=== PATIENT | male | born 2000 | race Caucasian/White ===

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

== ENCOUNTER → 2019-03-06 | Outpatient (REF) | payer MEDICAID ==
[~2019-03-06] MED LIST: CHLO0.12; CLIN150C14; HYDR-3716; IBUP80TA
== END ==
LOC: M LAB REF 13:02
PROVIDERS: ATTEND Physician Assistant
DX: J02.9 Acute pharyngitis, unspecified (principal)